=== PATIENT | female | born 1955 | race Caucasian/White ===

== ENCOUNTER → 2017-12-06 | Outpatient (CLI) | payer OTHER ==
[~2017-12-06] MED LIST: ACTOS 30 MG TAB30 MG PO; ALLOPURINOL 10100 M1 PO; FLEXERIL PO; FLUCONAZOLE; FUROSEMIDE 20 M20 MG PO; GABAPENTIN300 MG PO; GLUCOTROL5 MG PO; HYDROCODON-ACE1 EAC8 PO; LORTAB; MAXZIDE 75-501 EAC1; MEVACOR40 MG PO; NEURONTIN 300M300 M2 PO; OXYCONTIN CR 1010 M1 PO; PERCOCET 5-3251 EACH PO; POTASSIUM; POTASSIUM20; TUSSIONEX PENN473 ML PO; VICODIN ES TAB1 EACH PO; ZPAK PO
[2017-12-07 06:10] LABS: IgA 244 mg/dL (87-352); IgG 992 mg/dL (700-1600); IgM 76 mg/dL (26-217)
[2017-12-08 12:05] LABS: ANA INTERPRETATION Negative (Negative)
== END | disposition home or self-care (01) ==
LOC: M.LAB 14:34
PROVIDERS: Psychiatry & Neurology Neuromuscular Medicine
DX: G62.9 Polyneuropathy, unspecified (principal); E11.8 Type 2 diabetes mellitus with unspecified complications; R26.9 Unspecified abnormalities of gait and mobility